=== PATIENT | male | born 1955 | race American Indian/Alaskan Native ===

== ENCOUNTER → 2021-08-22 | Outpatient (CLI) | payer OTHER | END | disposition home or self-care (01) | LOC: LAB SHORT 11:58 | DX: J02.9 Acute pharyngitis, unspecified (principal) | CPT/HCPCS: 87081 ==

== ENCOUNTER 2023-02-14 11:28 | Inpatient (IN) | payer OTHER ==
[~2023-02-14] VITALS: Ht 177.8 cm; Wt 92.0 kg
[2023-02-14] MEDS ORDERED: Aspir 8181 MG PO (11:42)
[2023-02-14] MEDS ORDERED: Celexa20 MG PO (11:42)
[2023-02-14] MEDS ORDERED: CHLO25B PO (11:43)
[2023-02-14] MEDS ORDERED: OXAYDO5 M1 PO (11:44)
[2023-02-14] MEDS ORDERED: PENVK500 (11:44)
[2023-02-14 12:25] LABS: BASOPHILS ABSOLUTE AUTO 0.05 K/mm3 (0.00-0.23); BASOPHILS PERCENT AUTO 0 % (0-2); EOSINOPHILS PERCENT AUTO 0 % (0-6); Hematocrit 37.5 % (37.0-53.0); Hemoglobin 13.6 g/dL (13.5-17.5); IMMATURE GRAN ABSOLUTE AUTO 0.11 K/mm3 (0.00-0.10); IMMATURE GRAN PERCENT AUTO 1 % (0-1); LYMPHOCYTES ABSOLUTE AUTO 1.24 K/mm3 (0.84-5.20); LYMPHOCYTES PERCENT AUTO 6 % (21-46); MONOCYTES ABSOLUTE AUTO 1.74 K/mm3 (0.16-1.47); MONOCYTES PERCENT AUTO 9 % (4-13); Mean Corpuscular HGB 31.6 pg (26.0-34.0); Mean Corpuscular HGB Conc 36.3 g/dL (31.5-36.5); Mean Corpuscular Volume 87 fL (80-100); Mean Platelet Volume 10.5 fL (9.1-12.4); NEUTROPHILS ABSOLUTE AUTO 17.19 K/mm3 (1.96-9.15); NEUTROPHILS PERCENT AUTO 85 % (41-73); Platelet Count 309 K/mm3 (150-400); RDW Coefficient Variation 11.5 % (11.7-14.2); RDW Standard Deviation 37.1 fL (35.1-46.3); Red Blood Cell Count 4.31 M/mm3 (4.30-5.90); White Blood Cell Count 20.33 K/mm3 (4.00-11.30)
[2023-02-14 12:46] LABS: Albumin, Blood 3.2 g/dL (3.4-5.0); Albumin/Globulin Ratio 0.7 (0.8-1.8); Bilirubin, Total 1.1 mg/dL (0.1-1.0); Bun/Creatinine Ratio 26.7 (12.0-20.0); Calcium, Blood 9.4 mg/dL (8.5-10.1); Creatinine, Blood 0.97 mg/dL (0.60-1.20); Globulin, Blood 4.8 g/dL (2.2-4.0); Potassium, Blood 3.4 mmol/L (3.5-5.5)
[2023-02-14 14:28] LABS: International Normalized Ratio 1.06; Prothrombin Time Results 11.1 Sec (9.7-11.5)
[2023-02-14 17:03] VITALS: BP 128/92
[2023-02-14] MEDS ORDERED: GLUCOPHAGE1000 M2 PO (18:11)
[2023-02-14 19:14] VITALS: BP 166/99
--- NOTE | 2023-02-14 19:40 | NUR ---
PT ADMIT FROM ER. APPLICATION ARCHITECT REPORTED GIVING 900MG CLEOCIN. ALERT AND ORIENTED X4. DENIES C/P, SOB, REPORTS SOME ABDOMENAL PAIN FROM DRAIAGE IN TO HIS STOMACH. BM YESTERDAY. DR. MILLER AT BEDSIDE TO ASPIRATE ABSESS. 30+ CC REMOVED. DR. MILLER TOLD PT TO PRESS ON ABSESS TO HELP FACILITE DRAINAGE. SHORTLY BEFORE 1900 PT STARTED SHAKING VIOLENTLY. RIGORS. PT ALERT AND ORIENTED X4, VITALS ARE LIKELY NOT ACCURATE DUE TO SHAKING. ORAL TEMP 100.7. CBG 303. DR. MEJIA NOTIFIED. PLS SEE UPDATED ORDERS. TELE MONITORING. OK TO CHANGE DIET TO ADA. REPORT GIVEN TO NOC RN.
[2023-02-14 19:48] VITALS: BP 117/83
--- NOTE | 2023-02-14 20:10 | NUR ---
PT CONT'S TO APPEAR PALE AND DIAPHORETIC AND HAD C/O OF FEELING "FREEZING" WHILE SKIN WAS WARM AND CLAMMY TO TOUCH. HE WAS OBSERVED TO HAVE A LOW GRADE FEVER OF 100.7 W/SOME ASSOCIATED ODD/BIZARRE SPEECH, RIGGORS, TACHYCARDIA, HYPERTENSION AND DIAPHORESIS. HE NOW REMAINS A/OX4 AND BUT IS SLIGHTLY WEAK FROM BASELINE W/ AT BEDSIDE TO ASSIST W/MILD CONFUSION AND POSSIBLE IMPULSIVITY. WAS NOTIFIED OF EVENT W/TELE PLACED, PRN TORADOL AND TYLENOL RECIEVED AND BLANKETS TEMPORARILY APPLIED TO EASE ANXIETY/RIGGORS. BP, HR AND TEMP ARE NOW TRENDING DOWNWARD. HE'S S.TACH AT 100'S-120'S, (WAS 130'S), ORAL TEMP 100.3 AND SBP WAS REGISTERING >200'S BUT IS DOWN TO 117/83. ABSCESS CONT'S TO DRAIN HEMOSANGUINOUS DRAINAGE BUT SWELLING HAS IMROVED COMPARED TO PICTURES FROM PRE-BEDSIDE I&D. PT IS W/O S/S ACUTE DISTRESS AT PRESENT AND APPEARS TO BE IMPROVING, WCTM AND NOTIFY MD LIN.
[2023-02-15 04:28] VITALS: BP 104/76
[2023-02-15 05:20] LABS: BASOPHILS ABSOLUTE AUTO 0.04 K/mm3 (0.00-0.23); BASOPHILS PERCENT AUTO 0 % (0-2); Hemoglobin 11.9 g/dL (13.5-17.5); LYMPHOCYTES ABSOLUTE AUTO 0.81 K/mm3 (0.84-5.20); LYMPHOCYTES PERCENT AUTO 4 % (21-46); MONOCYTES ABSOLUTE AUTO 1.38 K/mm3 (0.16-1.47); MONOCYTES PERCENT AUTO 7 % (4-13); Mean Corpuscular HGB 31.2 pg (26.0-34.0); Mean Corpuscular Volume 89 fL (80-100); Mean Platelet Volume 10.7 fL (9.1-12.4); Platelet Count 269 K/mm3 (150-400); RDW Coefficient Variation 11.7 % (11.7-14.2); RDW Standard Deviation 37.4 fL (35.1-46.3); Red Blood Cell Count 3.82 M/mm3 (4.30-5.90)
[2023-02-15 05:30] LABS: EOSINOPHILS PERCENT AUTO 0 % (0-6); IMMATURE GRAN ABSOLUTE AUTO 0.29 K/mm3 (0.00-0.10); IMMATURE GRAN PERCENT AUTO 1 % (0-1); NEUTROPHILS ABSOLUTE AUTO 18.78 K/mm3 (1.96-9.15); NEUTROPHILS PERCENT AUTO 88 % (41-73)
[2023-02-15 05:41] LABS: Bun/Creatinine Ratio 30.8 (12.0-20.0); Calcium, Blood 8.5 mg/dL (8.5-10.1); Creatinine, Blood 1.17 mg/dL (0.60-1.20); Potassium, Blood 3.5 mmol/L (3.5-5.5)
--- NOTE | 2023-02-15 05:55 | NUR ---
SUMMARY: PT A/OX4, CALLS APPROPRIATELY TO SPECIFY NEEDS AND IS PLEASANT AND COOPERATIVE W/CARE. HE BEGAN SHIFT W/A LOW GRADE TEMP, RIGGORS, TACHYCARDIA AND HYPERTENSION. MD WAS MADE AWARE AND TORADOL AND TYLENOL WERE RECEIVED PRN FOR IMPROVEMENT IN VITALS. HE'S CONT'S TO BE DIAPHORETIC, SATURATING GOWNS AND LINENS WHILE ASLEEP, BUT TEMP HAS REMAINED WNL AND HE'S DENIED ADDITIONAL CHILLS. HE'S NOW NSR ON TELE AT 70'S-90'S BPM AND SBP IS 1TEENS-120'S SINCE INITIAL EVENT. BEDSIDE I&D OF PERIDONTAL ABSCESS WAS PERFORMED ON DAY SHIFT AND SITE HAS CONT'D TO DRAIN MODERATE AMT OF HEMOSANGUINOUS DRAINAGE. SWELLING PERSISTS BUT IS GREATLY IMPROVED FROM PRE-PROCEDURE PICS. IVF AND ABX PROVIDED PER EMAR. HE USED URINAL/SBA TO TOILET TO VOID AND REMAINED AT BEDSIDE TO ASSIST PRN. NO ACUTE CHANGES, VSS/AFEBRILE. WCTM AND REPORT TO DAY.
[2023-02-15 07:36] VITALS: BP 109/71
[2023-02-15 17:06] VITALS: BP 125/78
--- NOTE | 2023-02-15 17:46 | NUR ---
SHIFT SUMMARY PT AOX4, SBA TO THE BATHROOM. HE STATED HE HAD TWO BM'S TODAY AND HAD NOT HAD A BM FOR TWO WEEKS. MEDICATED FOR PAIN PER THE EMAR AND PT STATES RELIEF. ABSCESS TO L JAW IS DRAINING AND A CULTURE WAS OBTAINED THIS SHIFT. NO C/O CP, PRESSURE, SOB, OR N/V. HE IS PLEASANT AND COOPERATIVE, HE MAKES HIS NEEDS KNOWN. CALL LIGHT WITHIN REACH, BED IN THE LOWEST POSITION. WILL REPORT TO ONCOMING NURSE.
[2023-02-15 19:14] VITALS: BP 118/75
--- NOTE | 2023-02-16 04:12 | NUR ---
SHIFT SUMMARY 68 YR M ADMITTED ON 02/14/23 FOR PERIODONTAL ABSCESS. FULL CODE. NO ACUTE CHANGES THIS SHIFT. PT IS PROACTIVE IN HIS CARE IN THAT HE CHANGES THE GAUZE ON HIS CHIN WOUND BY HIMSELF WHEN IT BECOMES WET WITH DRAINAGE. HE USES 4X4 GAUZE AND TAPE AND CHANGES IT OFTEN. WOUND IS NOT RED AND PT STATES HIS PAIN IS WELL CONTROLLED W/ PAIN MEDS PER EMAR. TORRIDOL APPEARS TO WORK WELL FOR HIM. HIS STAYED THE NIGHT IN THE ROOM WITH HIM AND BETWEEN THE TWO OF THEM, HE IS ABLE TO TAKE CARE OF MOST OF HIS OWN NEEDS. HE IS VERY PLEASANT AND COOPERATIVE WITH CARE.
[2023-02-16 04:22] VITALS: BP 112/86
[2023-02-16 05:05] LABS: BASOPHILS ABSOLUTE AUTO 0.03 K/mm3 (0.00-0.23); BASOPHILS PERCENT AUTO 0 % (0-2); EOSINOPHILS ABSOLUTE AUTO 0.01 K/mm3 (0.00-0.68); EOSINOPHILS PERCENT AUTO 0 % (0-6); Hematocrit 32.4 % (37.0-53.0); Hemoglobin 11.6 g/dL (13.5-17.5); IMMATURE GRAN ABSOLUTE AUTO 0.37 K/mm3 (0.00-0.10); IMMATURE GRAN PERCENT AUTO 2 % (0-1); LYMPHOCYTES ABSOLUTE AUTO 1.67 K/mm3 (0.84-5.20); LYMPHOCYTES PERCENT AUTO 9 % (21-46); MONOCYTES PERCENT AUTO 6 % (4-13); Mean Corpuscular HGB 31.1 pg (26.0-34.0); Mean Corpuscular HGB Conc 35.8 g/dL (31.5-36.5); Mean Corpuscular Volume 87 fL (80-100); NEUTROPHILS ABSOLUTE AUTO 15.45 K/mm3 (1.96-9.15); NEUTROPHILS PERCENT AUTO 82 % (41-73); Platelet Count 294 K/mm3 (150-400); RDW Coefficient Variation 11.3 % (11.7-14.2); RDW Standard Deviation 36.6 fL (35.1-46.3); Red Blood Cell Count 3.73 M/mm3 (4.30-5.90); White Blood Cell Count 18.73 K/mm3 (4.00-11.30)
[2023-02-16 05:49] LABS: Calcium, Blood 8.3 mg/dL (8.5-10.1); Creatinine, Blood 0.92 mg/dL (0.60-1.20); Potassium, Blood 3.4 mmol/L (3.5-5.5)
[2023-02-16 07:47] VITALS: BP 131/81
[2023-02-16 16:20] VITALS: BP 125/77
--- NOTE | 2023-02-16 18:03 | NUR ---
SHIFT SUMMARY PT AOX4, SBA TO THE BR. THE SWELLING ON HIS L JAW HAS IMPROVED AND HE HAS NOT C/O PAIN THIS SHIFT. HE HAS NOT HAD ANY CP OR PRESSURE OR SOB. HE HAS HAD FAMILY AT THE BS T/O THE SHIFT. THE PLAN IS FOR HIM TO DISCHARGE IN THE AM BEFORE A DENTAL SURGERY APPOINTMENT. THE PROVIDER IS AWARE. NEW MEDICATIONS TO HELP CONTROL HIS BLOOD SUGAR HAVE BEEN ADMINISTERED PER THE EMAR. CALL LIGHT WITHIN REACH, BED IN THE LOWEST POSITION. WILL REPORT TO ONCOMING NURSE.
[2023-02-16 20:02] VITALS: BP 126/79
[2023-02-17 04:59] VITALS: BP 130/79
--- NOTE | 2023-02-17 05:20 | NUR ---
SHIFT SUMMARY 68 YR M ADMITTED ON 02/14/23 FOR PERIODONTAL ABSCESS. FULL CODE. NO ACUTE CHANGES THIS SHIFT. PT STATES THAT TORADOL WORKS VERY WELL FOR HIS PAIN AND AT THIS POINT IT IS THE ONLY THING HE WANTS TO TAKE. ASIDE FROM JAW PAIN, PT HAS HAD NO OTHER C/O PAIN OR DISCOMFORT. HE IS PLEASANT AND COOPERATIVE WITH CARE. HE STATES HE IS A BIT NERVOUS ABOUT HIS DENTAL SURGERY TODAY BUT HE IS READY TO GET IT OVER WITH.
[2023-02-17 05:28] LABS: BASOPHILS ABSOLUTE AUTO 0.05 K/mm3 (0.00-0.23); BASOPHILS PERCENT AUTO 0 % (0-2); EOSINOPHILS ABSOLUTE AUTO 0.05 K/mm3 (0.00-0.68); EOSINOPHILS PERCENT AUTO 0 % (0-6); Hematocrit 31.4 % (37.0-53.0); Hemoglobin 11.1 g/dL (13.5-17.5); IMMATURE GRAN ABSOLUTE AUTO 0.29 K/mm3 (0.00-0.10); IMMATURE GRAN PERCENT AUTO 2 % (0-1); LYMPHOCYTES ABSOLUTE AUTO 2.64 K/mm3 (0.84-5.20); LYMPHOCYTES PERCENT AUTO 21 % (21-46); MONOCYTES ABSOLUTE AUTO 0.88 K/mm3 (0.16-1.47); MONOCYTES PERCENT AUTO 7 % (4-13); Mean Corpuscular HGB 30.9 pg (26.0-34.0); Mean Corpuscular HGB Conc 35.4 g/dL (31.5-36.5); Mean Corpuscular Volume 88 fL (80-100); Mean Platelet Volume 11.2 fL (9.1-12.4); NEUTROPHILS ABSOLUTE AUTO 8.94 K/mm3 (1.96-9.15); NEUTROPHILS PERCENT AUTO 70 % (41-73); Platelet Count 305 K/mm3 (150-400); RDW Coefficient Variation 11.5 % (11.7-14.2); RDW Standard Deviation 36.8 fL (35.1-46.3); Red Blood Cell Count 3.59 M/mm3 (4.30-5.90); White Blood Cell Count 12.85 K/mm3 (4.00-11.30)
[2023-02-17 07:50] VITALS: BP 142/84
[2023-02-17] MEDS ORDERED: ACET325 PO (07:58)
[2023-02-17] MEDS ORDERED: FAMO20 PO (07:58)
[2023-02-17] MEDS ORDERED: VISBIOME 112.51 EACH PO (07:58)
[2023-02-17] MEDS ORDERED: Cleocin HCl150 MG PO (07:58)
[2023-02-17] MEDS ORDERED: IBUP800 PO (07:59)
--- NOTE | 2023-02-17 09:04 | NUR ---
PATIENT DISCHARGED, HAS ORAL SURGERY APPT LATER THIS MORNING. IV SALINE LOCKS REMOVED WITHOUT INCIDENT. VERBALIZED UNDERSTANDING OF /C INSTRUCTIONS, WAS GIVEN A PAPER RX FOR OXYCODONE. OTHER MEDS FAXED TO [facility]. AMBULATED OFF UNIT AT 0900. NO BELONGINGS LEFT BEHIND IN ROOM. IS DRIVING HIM.
== END 2023-02-17 09:00 | disposition home or self-care (01) | DRG 872 ==
LOC: ER 11:28 → MEDS 14:58
PROVIDERS: Emergency Medicine; ADMIT Internal Medicine
DX: A41.9 Sepsis, unspecified organism (principal); L03.211 Cellulitis of face; K12.2 Cellulitis and abscess of mouth; K04.7 Periapical abscess without sinus; I10 Essential (primary) hypertension; E87.6 Hypokalemia; E11.9 Type 2 diabetes mellitus without complications; F32.A Depression, unspecified; Z88.8 Allergy status to other drugs, medicaments and biological substances; Z79.82 Long term (current) use of aspirin; Z79.891 Long term (current) use of opiate analgesic; Z79.84 Long term (current) use of oral hypoglycemic drugs
CPT/HCPCS: 36415; 70491; 80048; 80053; 82947; 83605; 85025; 85610; 85730; 87040; 93005; 93010; 94760; 96365-59; 96366; 96367; 96375-59; 99285-25; A9270; J0295; J0736; J1100; J1650; J1885; J2270; J3010; J3480; J7030; J7050; Q9967